=== PATIENT | female | born 1970 | race Hispanic/Latino ===

== ENCOUNTER 2017-06-22 05:18 | Emergency (ER) | payer OTHER, SELFPAY ==
[2017-06-22] MEDS ORDERED: SODIUM CHLORIDE 0.9% 1000ML 1,000 ML IV ONE (05:36)
[2017-06-22] MEDS ORDERED: ONDANSETRON HCL MDV 20ML 2 MG/ML VIAL ONE (05:36)
[2017-06-22] MEDS ORDERED: ASPIRIN 81MG TAB.CHEW ONE (05:47)
[2017-06-22 05:51] LABS: BASOPHILS % (AUTO) 0.4 % (0.0-5.0); EOSINOPHILS % (AUTO) 1.3 % (0.0-8.0); HEMATOCRIT 37.9 % (36-48); LYMPHOCYTES % (AUTO) 22.5 % (21.0-51.0); MEAN CORPUSCULAR HEMOGLOBIN 28.8 pg (27.0-33.0); MEAN CORPUSCULAR HGB CONC 33.2 g/dL (32.0-36.0); MEAN CORPUSCULAR VOLUME 86.7 fL (79-99); MONOCYTES % (AUTO) 4.4 % (3.0-13.0); NEUTROPHILS % (AUTO) 71.4 % (40.0-77.0); PLATELET COUNT (AUTO) 363 K/uL (130-400); RED BLOOD CELL COUNT(AUTO) 4.37 MIL/uL (4.00-5.50)
[2017-06-22 05:59] LABS: CARBON DIOXIDE 24 mmol/L (21-32); CHLORIDE 104 mmol/L (101-111); CREATININE 0.7 mg/dL (0.5-1.5); GLOMERULAR FILTR. RATE CALC 96 mL/min (>60); GLUCOSE,RANDOM 250 mg/dL (70-105); POTASSIUM 3.5 mmol/L (3.5-5.1); SODIUM SERUM 138 mmol/L (136-145); UREA NITROGEN, BLOOD 11 mg/dL (7-18)
[2017-06-22 06:19] LABS: CREATINE KINASE MB 0.5 ng/mL (0.5-3.6); CREATINE KINASE, TOTAL 50 U/L (21-232); MYOGLOBIN 21 ng/mL (10-92); TROPONIN I < 0.04 ng/mL (0.00-0.06)
[2017-06-22] MEDS ORDERED: TRAMADOL HCL 50 MG TABLET ONE (06:42)
[2017-06-22] MEDS ORDERED: SUCRALFATE 1 GM TABLET ONE (07:25)
[2017-06-22 07:35] LABS: ALANINE AMINOTRANSFERASE 25 U/L (12-78); ALBUMIN 3.2 g/dL (3.5-5.0); ASPARTATE AMINOTRANSFERASE 13 U/L (10-37); BILIRUBIN,TOTAL 0.2 mg/dL (0.2-1.0); LIPASE 153 U/L (114-286); TOTAL PROTEIN, SERUM 7.2 g/dL (6.0-8.3)
== END 2017-06-22 08:18 | disposition home or self-care (01) ==
LOC: EDH 05:18
DX: R11.2 Nausea with vomiting, unspecified (principal); R19.7 Diarrhea, unspecified; M25.512 Pain in left shoulder; R94.31 Abnormal electrocardiogram [ECG] [EKG]; E11.40 Type 2 diabetes mellitus with diabetic neuropathy, unspecified; Z98.890 Other specified postprocedural states
CPT/HCPCS: 36415; 80053; 82550; 82553; 83690; 83874; 84484 ×2; 85025; 93005 ×2; 96361; 96374; 99285; J7030

== ENCOUNTER 2022-08-30 20:29 | Emergency (ER) | payer OTHER, SELFPAY ==
[~2022-08-30] VITALS: Ht 152.4 cm; Wt 86.2 kg
[2022-08-30 20:35] VITALS: BP 159/83
[2022-08-30 21:07] LABS: APPEARANCE,URINE CLEAR (CLEAR); BILIRUBIN,URINE NEGATIVE (NEGATIVE); COLOR,URINE DARK-YELLOW (YELLOW); GLUCOSE, URINE (UA) NEGATIVE (NEGATIVE); KETONES,URINE NEGATIVE (NEGATIVE); LEUKOCYTE ESTERASE ,URINE NEGATIVE Leu/uL (NEGATIVE); NITRATE,URINE 1+ (NEGATIVE); OCCULT BLOOD,URINE NEGATIVE (NEGATIVE); PH,URINE 7.5 (5.0-8.0); PROTEIN,URINE NEGATIVE (NEGATIVE); UROBILINOGEN,URINE 0.2 mg/dL (0.2-1.0)
[2022-08-30 21:08] LABS: RBC,URINE 0-1 /HPF (0-1); WBC,URINE 0-1 /HPF (0-1)
[2022-08-30] MEDS ORDERED: SULF1TAB42 PO (21:29)
[2022-08-30] MEDS ORDERED: CEFTRIAXONE 1G VIAL IM ONE (21:30)
== END 2022-08-30 21:59 | disposition home or self-care (01) ==
LOC: EDH 20:29
DX: N39.0 Urinary tract infection, site not specified (principal); I10 Essential (primary) hypertension; E11.9 Type 2 diabetes mellitus without complications; E78.00 Pure hypercholesterolemia, unspecified
CPT/HCPCS: 99283; 87088; 81001; 96372; J0696

== ENCOUNTER 2022-09-10 02:26 | Observation (INO) | payer OTHER ==
[~2022-09-10] VITALS: Ht 152.4 cm; Wt 75.2 kg
[~2022-09-10 02:26] MED LIST: SULF1TAB42 PO
[2022-09-10 02:52] LABS: BASOPHILS % (AUTO) 0.4 % (0.0-5.0); EOSINOPHILS % (AUTO) 1.7 % (0.0-8.0); HEMATOCRIT 37.4 % (36-48); LYMPHOCYTES % (AUTO) 27.4 % (21.0-51.0); MEAN CORPUSCULAR HEMOGLOBIN 29.1 pg (27.0-33.0); MEAN CORPUSCULAR VOLUME 85.8 fL (79-99); MONOCYTES % (AUTO) 5.5 % (3.0-13.0); NEUTROPHILS % (AUTO) 64.4 % (40.0-77.0); PLATELET COUNT (AUTO) 402 K/uL (130-400); RED BLOOD CELL COUNT(AUTO) 4.36 MIL/uL (4.00-5.50); RED CELL DISTRIBUTION WIDTH 12.6 % (11.0-15.5); WHITE BLOOD COUNT (AUTO) 13.4 K/uL (4.8-10.8)
[2022-09-10 02:58] LABS: APPEARANCE,URINE CLEAR (CLEAR); BILIRUBIN,URINE NEGATIVE (NEGATIVE); COLOR,URINE DARK-YELLOW (YELLOW); GLUCOSE, URINE (UA) NEGATIVE (NEGATIVE); KETONES,URINE NEGATIVE (NEGATIVE); LEUKOCYTE ESTERASE ,URINE NEGATIVE Leu/uL (NEGATIVE); NITRATE,URINE NEGATIVE (NEGATIVE); OCCULT BLOOD,URINE NEGATIVE (NEGATIVE); PROTEIN,URINE NEGATIVE (NEGATIVE); UROBILINOGEN,URINE 0.2 mg/dL (0.2-1.0)
[2022-09-10] MEDS ORDERED: LIDOCAINE HCL 2% VISCOUS 15 ML UDCUP PO ONE (03:00)
[2022-09-10] MEDS ORDERED: LACTATED RINGERS 1000ML 1,000 ML IV ONE (03:00)
[2022-09-10] MEDS ORDERED: MORPHINE 2 MG SYG IVP ONE (03:00)
[2022-09-10] MEDS ORDERED: ONDANSETRON 4MG INJ IVP ONE (03:00)
[2022-09-10 03:07] LABS: ALBUMIN 3.6 g/dL (3.5-5.0); CREATININE 0.6 mg/dL (0.5-1.5); POTASSIUM 4.2 mmol/L (3.5-5.1); TOTAL PROTEIN, SERUM 7.2 g/dL (6.0-8.3)
[2022-09-10] MEDS ORDERED: ESOM20CA60 PO (04:12)
[2022-09-10] MEDS ORDERED: ESTR1TAB17 PO (04:12)
[2022-09-10] MEDS ORDERED: SITA100T12 PO (04:12)
[2022-09-10] MEDS ORDERED: ATOR10TA69 PO (04:12)
[2022-09-10] MEDS ORDERED: GABA-529 PO (04:12)
[2022-09-10] MEDS ORDERED: LISI20TA24 PO (04:12)
[2022-09-10] MEDS ORDERED: PROP20TA7 PO (04:13)
[2022-09-10] MEDS ORDERED: CEFTRIAXONE 1G VIAL 1 GM in 0.9%NACL 50ML 50 ML IV SCH (05:00)
[2022-09-10] MEDS ORDERED: ACETAMINOPHEN WITH CODEINE 1 TAB TAB PO PRN ×2 (05:00)
[2022-09-10] MEDS ORDERED: 0.9%NACL 1000ML 1,000 ML IV SCH (05:00)
[2022-09-10] MEDS ORDERED: MAG/ALUM/SIMETH 30 ML UDCUP PO PRN (05:00)
[2022-09-10] MEDS ORDERED: ONDANSETRON 4MG INJ IV PRN (05:00)
[2022-09-10] MEDS ORDERED: CEFTRIAXONE 1G VIAL ONE (05:27)
[2022-09-10 05:55] VITALS: BP 126/69
[2022-09-10] MEDS: INSULIN HUMULIN R 100 UNIT/ML 3ML SQ SCH ×2 (06:35→11:30)
[2022-09-10 08:00] VITALS: BP 107/60
[2022-09-10] MEDS ORDERED: ENOXAPARIN SODIUM 30 MG/0.3 ML SQ SCH (09:00)
[2022-09-10] MEDS ORDERED: FAMOTIDINE 20MG TAB PO SCH (09:00)
[2022-09-10 09:25] LABS: CRP QUANTITATIVE 4.6 mg/L (0.00-9.0)
[2022-09-10 09:30] LABS: HEMOGLOBIN A1C 6.8 % (4.0-6.0)
[2022-09-10] MEDS ORDERED: PANTOPRAZOLE 40 MG/VIAL IVP SCH (09:30)
[2022-09-10] MEDS ORDERED: CEFTRIAXONE 1G VIAL IVPB SCH (11:00)
[2022-09-10] MEDS ORDERED: LEVO-70 PO (11:14)
[2022-09-10] MEDS ORDERED: DICY-20 PO (11:14)
[2022-09-10] MEDS ORDERED: PANT40TA54 PO (11:14)
[2022-09-10 11:41] VITALS: BP 111/71
[2022-09-10 11:52] LABS: CREATININE 0.5 mg/dL (0.5-1.5); POTASSIUM 4.2 mmol/L (3.5-5.1)
== END 2022-09-10 14:55 | disposition home or self-care (01) ==
LOC: EDH 02:26 → EDHIP 02:27 → INTOOBSV 02:27 → 4DH 05:39
PROVIDERS: ADMIT Hospitalist; ATTEND Hospitalist
DX: A04.9 Bacterial intestinal infection, unspecified (principal); K52.89 Other specified noninfective gastroenteritis and colitis; D72.829 Elevated white blood cell count, unspecified; E87.8 Other disorders of electrolyte and fluid balance, not elsewhere classified; E87.1 Hypo-osmolality and hyponatremia; D75.839 Thrombocytosis, unspecified; I10 Essential (primary) hypertension; E66.9 Obesity, unspecified; E11.65 Type 2 diabetes mellitus with hyperglycemia; E78.00 Pure hypercholesterolemia, unspecified; N39.0 Urinary tract infection, site not specified; Z79.899 Other long term (current) drug therapy; Z98.890 Other specified postprocedural states; Z68.32 Body mass index [BMI] 32.0-32.9, adult; Z87.440 Personal history of urinary (tract) infections; Z90.710 Acquired absence of both cervix and uterus; Z98.891 History of uterine scar from previous surgery
CPT/HCPCS: 96372; 96361; 96365; 96375; 99285; 83036; 83615; 84484; 80053; 83690; 85025; 85651; 87040 ×2; 82948 ×2; 86140; 81003; 36415; 74176; 93005; 84145; G0378 ×10; J7120; J2270; J7030; J1650; J0696; J2405; C9113; 80048

== ENCOUNTER 2024-03-25 19:22 | Emergency (ER) | payer SELFPAY ==
[~2024-03-25] VITALS: Ht 152.4 cm; Wt 80.3 kg
[~2024-03-25 19:22] MED LIST changes: +ATOR10TA69 PO; +DICY10CA2 PO; +DICY20TA2 PO; +ESTR1TAB17 PO; +GABA-529 PO; +LEVO-70 PO; +LISI20TA24 PO; +ONDA-243 PO; +PANT40TA54 PO; +PROP20TA7 PO; +SITA100T12 PO; -SULF1TAB42 PO
--- NOTE | 2024-03-25 19:29 | NUR ---
UA CUP PROVIDED
[2024-03-25 19:43] LABS: BASOPHILS # (AUTO) 0.03 K/uL (0.00-0.20); BASOPHILS % (AUTO) 0.2 % (0.0-5.0); EOSINOPHILS % (AUTO) 2.2 % (0.0-8.0); HEMATOCRIT 38.3 % (36-48); IMMATURE GRANULOCYTE ABSOLUTE 0.06 K/uL (0-1); LYMPHOCYTES # (AUTO) 3.1 K/uL (1.0-4.8); LYMPHOCYTES % (AUTO) 23.3 % (21.0-51.0); MEAN CORPUSCULAR HEMOGLOBIN 29.9 pg (27.0-33.0); MEAN CORPUSCULAR HGB CONC 33.9 g/dL (32.0-36.0); MONOCYTES # (AUTO) 1.1 K/uL (0.1-1.0); MONOCYTES % (AUTO) 7.9 % (3.0-13.0); NEUTROPHILS # (AUTO) 8.8 K/uL (1.8-7.7); PLATELET COUNT (AUTO) 378 K/uL (130-400); RED BLOOD CELL COUNT(AUTO) 4.35 MIL/uL (4.00-5.50); RED CELL DISTRIBUTION WIDTH 12.6 % (11.0-15.5); WHITE BLOOD COUNT (AUTO) 13.4 K/uL (4.8-10.8)
--- NOTE | 2024-03-25 19:43 | ERN ---
ED Note History of Present Illness Stated Complaint: HEADACHE, ABD PAIN Chief Complaint: Multiple Complaints Time Seen by MD: 19:32 Dictation: PATIENT IS A 53-YEAR-OLD FEMALE COMING IN TODAY WITH COMPLAINTS OF AN ONSET OF A FRONTAL HEADACHE AND BURNING IN HER STOMACH ONSET THIS MORNING. SHE STATES SHE HAD CHECKED HER BLOOD SUGAR IT [id number] AND TOOK HER MEDICATIONS. SHE ALSO STATES SHE TOOK AN IBUPROFEN THIS MORNING AND THE HEADACHE ALMOST WENT AWAY AND THEN CAME BACK THIS AFTERNOON. SHE STATES CURRENTLY SHE IS JUST HAVING BURNING IN HER STOMACH MORE EPIGASTRIC, NO SOB NO BACK PAIN NO JAW PAIN NO ARM PAIN. STATES SHE HAD BEEN ONLY TAKING METFORMIN A 1000 MG AT NIGHT AND HAD HAD A TELE HEALTH CALL WITH HER DOCTOR YESTERDAY WHO CHANGED HIS TO 500 MG 3 TIMES A DAY WITH FOOD. Allergies: Coded Allergies: No Known Drug Allergies (Unverified Allergy, Unknown, 09/10/22) Home Meds Active Scripts Dicyclomine HCl (Bentyl) 20 Mg Tab, 10 MG PO BID for 5 Days, #10 TAB Prov:JANAY BAINS MD 09/03/23 Ondansetron (Ondansetron Odt) 4 Mg Tab.rapdis, 4 MG PO BID for 5 Days, #10 TAB Prov:JANAY BAINS MD 09/03/23 Levofloxacin (Levofloxacin) 500 Mg Tablet, 500 MG PO DAILY, #5 TAB 0 Refills Prov:PAKO CURRAN 09/10/22 Dicyclomine HCl (Dicyclomine HCl) 10 Mg Capsule, 10 MG PO TIDP PRN for ABDOMINAL PAIN, #21 CAP 0 Refills Prov:PAKO CURRAN 09/10/22 Pantoprazole Sodium (Pantoprazole Sodium) 40 Mg Tablet.dr, 40 MG PO DAILY, #30 TAB 0 Refills Prov:PAKO CURRAN 09/10/22 Reported Medications Propranolol HCl (Propranolol HCl) 20 Mg Tablet, 20 MG PO BID, TAB 09/10/22 Gabapentin (Gabapentin) 100 Mg Capsule, 100 MG PO HS, CAP 09/10/22 Sitagliptin Phosphate (Januvia) 100 Mg Tablet, 100 MG PO DAILY, TAB 09/10/22 Estradiol (Estradiol) 1 Mg Tablet, 1 MG PO DAILY, TAB 09/10/22 Atorvastatin Calcium (Atorvastatin Calcium) 10 Mg Tablet, 10 MG PO HS, TAB 09/10/22 Lisinopril (Lisinopril) 20 Mg Tablet, 20 MG PO DAILY, TAB 09/10/22 Past Medical History Past Medical History: Diabetes-Type II, GERD, High Cholesterol, Hypertension Surgical History: Hysterectomy, Social History: Negative History: Not Applicable RN Note Reviewed/Agreed w/PFSH: Yes Review of System Dictation CONSTITUTIONAL: NEGATIVE EXCEPT FOR HPI HEAD/FACE: NEGATIVE EXCEPT FOR HPI EENT: NEGATIVE EXCEPT FOR HPI RESPIRATORY: NEGATIVE EXCEPT FOR HPI GASTROINTESTINAL/ABDOMINAL: NEGATIVE EXCEPT FOR HPI BURNING GENITOURINARY: NEGATIVE EXCEPT FOR HPI MUSCULOSKELETAL: NEGATIVE EXCEPT FOR HPI INTEGUMENTARY: NEGATIVE EXCEPT FOR HPI NEUROLOGICAL/PSYCH: NEGATIVE EXCEPT FOR HPI FRONTAL HEADACHE HEMATOLOGIC/LYMPHATIC: NEGATIVE EXCEPT FOR HPI ALL SYSTEMS NEGATIVE, EXCEPT NOTED ABOVE. 13 POINT REVIEW OF SYSTEMS ASSESSED AND ALL NEGATIVE EXCEPT FOR ABOVE. Initial Vital Sign VS Vital Signs Date Time Temp Pulse Resp B/P (MAP) Pulse Ox O2 Delivery O2 Flow Rate FiO2 03/25/24 19:23 97.5 77 18 175/104 97 Room Air 03/25/24 19:37 0 21 Physical Exam Dictation VITAL SIGNS REVIEWED GENERAL APPEARANCE: ALERT, ORIENTED X 3, MILD ACUTE DISTRESS, WELL DEVELOPED, NOURISHED. HEAD AND FACE: NON-TRAUMATIC. EYES: PERRL, PINK CONJUNCTIVAS, EYELID NO TRAUMA, ANTERIOR CHAMBER WITH ARCUS SENILIS. EARS: PINNAS INTACT AND NO SIGNS OF TRAUMA OR ERYTHEMA EAR CANALS CLEAR AND NO DISCHARGE TM NO ERYTHEMA NOSE: NO DISCHARGE, NO BLEEDING. OROPHARYNX: MOUTH NORMAL, TONGUE PINK, PHARYNX CLEAR,NO ERYTHEMA, TONSILS NO EXUDATES, NO ABSCESSES NOTED, MUCOUS MEMBRANE MOIST NECK: SUPPLE, NON-TENDER, NO THYROMEGALY, NO MASSES, NO JVD, NO BRUITS BREAST:DEFERRED CHEST:NO TENDERNESS, NO CREPITUS, NO PARADOXICAL MOVEMENT, NO RETRACTIONS LUNGS:CLEAR, WELL-VENTILATED, SYMMETRIC, NO RALES, NO WHEEZING, NO RHONCHI, NO STRIDOR, GOOD BREATH SOUNDS BILATERALLY HEART: REGULAR RATE, REGULAR RHYTHM, NO MURMUR, NO GALLOPS VASCULAR: NO PERIPHERAL EDEMA, MILD EPIGASTRIC TENDERNESS WITH PALPATION, NO REBOUND, NO MASSES NO HEPATOMEGALY, NO SPLENOMEGALY, NO SALDANA'S SIGN, NO HERNIAS. RECTAL: DEFERRED GENITAL: DEFERRED NEUROLOGICAL: NORMAL SPEECH, MOTOR FUNCTION INTACT, SENSORY FUNCTION INTACT NIH IS 0 MUSCULOSKELETAL: NECK NONTENDER, FULL RANGE OF MOTION, BACK NONTENDER, FULL RANGE OF MOTION, EXTREMITIES: NONTENDER, FULL RANGE OF MOTION SKIN: COLOR PINK, DRY, NO TURGOR, NO RASH, NO LACERATIONS, NO ABRASIONS, NO CONTUSIONS. LYMPHATIC: DEFERRED Results (Laboratory/Radiology) Laboratory/Radiology Laboratory Tests Test 03/25/24 19:35 03/25/24 19:44 White Blood Count 13.4 K/uL (4.8-10.8) H Red Blood Count 4.35 MIL/uL (4.00-5.50) Hemoglobin 13.0 g/dL (12.0-16.0) Hematocrit 38.3 % (36-48) Mean Corpuscular Volume 88.0 fL (79-99) Mean Corpuscular Hemoglobin 29.9 pg (27.0-33.0) Mean Corpuscular Hemoglobin Concent 33.9 g/dL (32.0-36.0) Red Cell Distribution Width 12.6 % (11.0-15.5) Platelet Count 378 K/uL (130-400) Mean Platelet Volume 9.9 fL (7.5-10.5) Immature Granulocyte % (Auto) 0.4 % (0-1) Neutrophils (%) (Auto) 66.0 % (40.0-77.0) Lymphocytes (%) (Auto) 23.3 % (21.0-51.0) Monocytes (%) (Auto) 7.9 % (3.0-13.0) Eosinophils (%) (Auto) 2.2 % (0.0-8.0) Basophils (%) (Auto) 0.2 % (0.0-5.0) Neutrophils # (Auto) 8.8 K/uL (1.8-7.7) H Lymphocytes # (Auto) 3.1 K/uL (1.0-4.8) Monocytes # (Auto) 1.1 K/uL (0.1-1.0) H Eosinophils # (Auto) 0.30 K/uL (0.00-0.70) Basophils # (Auto) 0.03 K/uL (0.00-0.20) Absolute Immature Granulocyte (auto 0.06 K/uL (0-1) Nucleated Red Blood Cells 0.0 % (0.0-0.19) Sodium Level 140 mmol/L (136-145) Potassium Level 4.4 mmol/L (3.5-5.1) Chloride Level 102 mmol/L (101-111) Carbon Dioxide Level 33 mmol/L (21-32) H Blood Urea Nitrogen 11 mg/dL (7-18) Creatinine 0.7 mg/dL (0.5-1.0) Glomerular Filtration Rate Calc 103 mL/min (>90) Random Glucose 177 mg/dL (70-105) H Total Calcium 9.3 mg/dL (8.5-10.1) Magnesium Level 1.50 mg/dL (1.80-2.40) L Total Bilirubin 0.3 mg/dL (0.2-1.0) Direct Bilirubin 0.1 mg/dL (0.0-0.3) Aspartate Amino Transf (AST/SGOT) 15 U/L (10-37) Alanine Aminotransferase (ALT/SGPT) 27 U/L (12-78) Alkaline Phosphatase 115 U/L (50-136) Troponin I High Sensitivity 5 ng/L (4-50) Total Protein 7.5 g/dL (6.0-8.3) Albumin 3.4 g/dL (3.5-5.0) L Lipase 113 U/L (16-77) H Urine Color COLORLESS (YELLOW) Urine Appearance CLEAR (CLEAR) Urine pH 7.5 (5.0-8.0) Urine Specific [place] 1.004 (1.001-1.031) Urine Protein NEGATIVE mg/dL (NEGATIVE) Urine Glucose (UA) NEGATIVE mg/dL (NEGATIVE) Urine Ketones NEGATIVE mg/dL (NEGATIVE) Urine Occult Blood NEGATIVE (NEGATIVE) Urine Nitrate NEGATIVE (NEGATIVE) Urine Bilirubin NEGATIVE mg/dL (NEGATIVE) Urine Urobilinogen 0.2 mg/dL (0.2-1.0) Urine Leukocyte Esterase NEGATIVE Kady/uL EX: F AGE: 53 LOCATION: ED ORDER 23 STATUS: REG ER REPORT#: [id number] SERVICE 22 REASON: EPIGASTRIC AND LEFT UPPER QUADRANT PAIN TENDERNESS ELEVATED LIPASE ORDERING PHYSICIAN: MIKI PALM NP PROCEDURE: ABD PEL W - CT ABDOMEN/PELVIS W/CONTRAST CT ABDOMEN/PELVIS W/CONTRAST CLINICAL HISTORY: EPIGASTRIC AND LEFT UPPER QUADRANT PAIN TENDERNESS ELEVATED LIPASE COMPARISON: 09/03/2023 TECHNIQUE: Sequential axial images of abdomen and pelvis with 75 mL of Omnipaque 350 IV contrast with sagittal and coronal reconstructions. CT was performed with one or more of the following dose reduction techniques: automated exposure control, adjustment of the mA and/or kV according to patient size, or use of iterative reconstruction technique. FINDINGS: The lung bases are clear. Liver and spleen are unremarkable. The gallbladder pancreas and adrenal glands and kidneys and bladder are unremarkable. There is no identified bowel obstruction. The appendix is unremarkable. There is no identified free air or free fluid. There is no bulky abdominal or retroperitoneal lymphadenopathy. The uterus is surgically absent. There is mild diffuse degenerative changes of the spine. The uterus is surgically absent. IMPRESSION: Change of prior hysterectomy. There are no acute findings. The pancreas is unremarkable. DICTA Labs Reviewed?: Yes EKG Comment: SINUS RHYTHM/HEART RATE 77/T-WAVE FLATTENING LEADS V4 AND V5 ED Course ED Course Orders Procedure Category Date Status Time Cbc With Differential LAB 03/25/24 Complete 19:29 Basic Metabolic Panel LAB 03/25/24 Complete 19:29 Magnesium LAB 03/25/24 Complete 19:29 Troponin I High LAB 03/25/24 Complete Sensitivity 19:29 Hepatic Function Panel LAB 03/25/24 Complete 19:29 Lipase LAB 03/25/24 Complete 19:29 12 Lead Ekg Tracing- EKG 03/25/24 Logged Technical 19:29 Urinalysis Profile LAB 03/25/24 Complete 19:29 Famotidine 20mg Vial PHA 03/25/24 Complete (Pepcid 20mg Vial) 20:00 0.9%Nacl 1000ml (Ns PHA 03/25/24 Complete 1000ml) 20:00 Ct Abdomen/Pelvis CT 03/25/24 Resulted W/Contrast 20:23 Iohexol (Omnipaque) PHA 03/25/24 Complete 21:19 Current Medications Medications (Trade) Dose Ordered Sig/Sis Route PRN Reason Start Time Stop Time Status Last Admin Dose Admin Famotidine (Pepcid 20mg Vial) 20 mg ONCE ONCE IV 03/25/24 20:00 03/25/24 20:01 DC 03/25/24 20:18 Iohexol (Omnipaque) 75 ml STK-MED ONCE IV 03/25/24 21:19 03/25/24 21:20 DC Sodium Chloride 1,000 ml @ 0 mls/hr ONCE ONCE IV 03/25/24 20:00 03/25/24 20:01 DC 03/25/24 20:18 Vital Signs Date Time Temp Pulse Resp B/P (MAP) Pulse Ox O2 Delivery O2 Flow Rate FiO2 03/25/24 20:42 98.8 80 15 132/77 99 Room Air* 0 21 03/25/24 19:37 98.8 78 15 133/77 99 Room Air* 0 21 03/25/24 19:23 97.5 77 18 175/104 97 Room Air 2155/PATIENT REMAINS HEMODYNAMICALLY STABLE NO PAIN AT THIS TIME WE WILL DISCHARGE HER HOME WITH ELEVATED LIPASE, UNCONTROLLED DIABETES AND GASTRITIS. ADDITIONALLY SHE WILL BE GIVEN MAGNESIUM TO REPLACE 1.5 AND HAVE HER FOLLOW UP WITH HER DOCTOR. HEART Score Response (Comments) Value EKG: Repolarization changes 1 Age: 45-65yrs (+1) 1 Risk Factors: 1-2 risk factors (+1) 1 Initial Troponin: Normal limit (0) 0 Total 3 Medical Decision Making MDM MDM: DIFFERENTIAL DIAGNOSIS: ACS/AMI/UTI/PANCREATITIS/DIVERTICULITIS/GASTRITIS RATIONALE: TESTS CONSIDERED AND ORDERED SECONDARY TO SHARED DECISION MAKING INCLUDE: EKG/LABS/RADIOLOGY PREVIOUS OUTSIDE RECORDS REVIEWED: OLD ER VISITS. RISK OF COMPLICATION AND/OR MORBIDITY OR MORTALITY OF PATIENT MANAGEMENT: NONE MEDICATIONS-PER MEDICATION RECONCILIATION NEED FOR HOSPITALIZATION: PATIENT DOES NOT MEET CRITERIA FOR HOSPITALIZATION. REVIEWED THERE ARE NO SOCIAL CONCERNS WITH THIS PATIENT. PRESCRIPTION DRUG MANAGEMENT OMEPRAZOLE/MAGNESIUM PRESCRIPTIONS WILL INCLUDE SYMPTOMATIC CARE PATIENT'S PRIOR EXTERNAL MEDICAL RECORDS FROM OTHER ER VISITS WERE REVIEWED BY ME INDICATED. PRIOR TESTING AND RESULTS FROM PREVIOUS VISITS WERE REVIEWED. PRIOR TESTS WERE TAKEN INTO ACCOUNT WITH MEDICAL DECISION MAKING AND RESOURCE UTILIZATION, INDEPENDENT HISTORIAN/HISTORIANS WERE USED TO OBTAIN COMPLETE MEDICAL HISTORY. I INDEPENDENTLY INTERPRETED THE TEST THAT WERE PERFORMED, RESULTS WERE REVIEWED BY ME AND CONSIDERED FINDINGS ON RADIOLOGY IF ORDERED. MEDICAL MANAGEMENT AND EXAMINATION INTERPRETATION DISCUSSIONS WERE HAD BY ME WITH OTHER QUALIFIED HEALTHCARE PROFESSIONALS INDICATED FOR THE PATIENT'S CARE. DX & DISP Disposition: Discharge Departure Impression: Primary Impression: Acute gastritis Additional Impressions: Uncontrolled diabetes mellitus, Hypomagnesemia, Elevated lipase Condition: Stable Scripts Omeprazole (Omeprazole) 40 Mg Capsule.dr 1 CAP PO DAILY for 30 Days, #30 CAP 0 Refills Prov: MIKI PALM NP 03/25/24 Sucralfate (Carafate) 1 Gram Tablet 1 GM PO ACHS for 10 Days, #40 TAB Prov: MIKI PALM NP 03/25/24 Magnesium Oxide/Mag Aa Chelate (Magnesium 300 mg Capsule) 300 Mg Capsule 300 MG PO DAILY for 10 Days, #10 CAP 0 Refills Prov: MIKI PALM NP 03/25/24 Additional Instructions: FOLLOW-UP WITH PRIMARY CARE PROVIDER IN 1 TO 2 DAYS. TAKE MEDICATIONS DIRECTED HERE IN THE EMERGENCY ROOM. OKAY TO CONTINUE HOME MEDICATIONS UNLESS OTHERWISE DISCUSSED DURING YOUR VISIT IN THE EMERGENCY ROOM TODAY. RETURN TO YOUR NEAREST EMERGENCY ROOM IF SYMPTOMS WORSEN OR IF THERE IS NO IMPROVEMENT. CALL 911 IF YOU NEED IMMEDIATE ASSISTANCE. TAKE TYLENOL OR MOTRIN [id number] NEEDED AND IF NO CONTRAINDICATIONS ARE PRESENT. INCREASE ORAL HYDRATION. A WOUND CULTURE OR URINE CULTURE WAS ORDERED HERE IN THE EM ERGENCY ROOM DEPARTMENT PLEASE FOLLOW-UP WITH PRIMARY CARE PROVIDER AND ADVISE THEM TO GET REPEAT PORTS FROM OUR FACILITY. IF YOU HAD ANY YONATAN WRAP/SPLINTS THAT WERE APPLIED HERE, PLEASE DO NOT REMOVE THEM UNTIL YOU SEE YOUR PRIMARY CARE OR SPECIALTY. FOLLOW A BLAND DIET WITH WATER FOR FLUIDS ONLY. NO SPICY FOODS NO COFFEE, NO ICE TEA NO SODA POP AND NO ALCOHOL UNTIL CLEARED BY YOUR DOCTOR NEXT WEEK. TAKE MAGNESIUM REPLACEMENT DIRECTED. TAKE CARAFATE DIRECTED. Referrals: JESSE PAYNE MD (PCP) Time of Disposition: 21:57 I have reviewed the case, and I agree with, Diagnosis and Plan MIKI PALM NP Mar 25, 2024 19:43
[2024-03-25 19:55] LABS: CREATININE 0.7 mg/dL (0.5-1.0); POTASSIUM 4.4 mmol/L (3.5-5.1)
[2024-03-25 19:59] LABS: ALBUMIN 3.4 g/dL (3.5-5.0); BILIRUBIN,DIRECT 0.1 mg/dL (0.0-0.3); BILIRUBIN,TOTAL 0.3 mg/dL (0.2-1.0); MAGNESIUM 1.5 mg/dL (1.80-2.40); TOTAL PROTEIN, SERUM 7.5 g/dL (6.0-8.3)
[2024-03-25 20:14] LABS: APPEARANCE,URINE CLEAR (CLEAR); BILIRUBIN,URINE NEGATIVE (NEGATIVE); COLOR,URINE COLORLESS (YELLOW); GLUCOSE, URINE (UA) NEGATIVE (NEGATIVE); KETONES,URINE NEGATIVE (NEGATIVE); LEUKOCYTE ESTERASE ,URINE NEGATIVE Leu/uL (NEGATIVE); NITRATE,URINE NEGATIVE (NEGATIVE); OCCULT BLOOD,URINE NEGATIVE (NEGATIVE); PH,URINE 7.5 (5.0-8.0); PROTEIN,URINE NEGATIVE (NEGATIVE); UROBILINOGEN,URINE 0.2 mg/dL (0.2-1.0)
[2024-03-25 20:15] LABS: ADD UA MICROSCOPIC NO
[2024-03-25] MEDS: 0.9%NACL 1000ML 1,000 ML IV ONE (20:18)
[2024-03-25] MEDS: FAMOTIDINE 20MG VIAL IV ONE (20:18)
[2024-03-25] MEDS ORDERED: IOHEXOL-350 75 ML VIAL IV ONE (21:19)
--- NOTE | 2024-03-25 21:50 | HMCIMG ---
CT ABDOMEN/PELVIS W/CONTRAST CLINICAL HISTORY: EPIGASTRIC AND LEFT UPPER QUADRANT PAIN TENDERNESS ELEVATED LIPASE COMPARISON: 09/03/2023 TECHNIQUE: Sequential axial images of abdomen and pelvis with 75 mL of Omnipaque 350 IV contrast with sagittal and coronal reconstructions. CT was performed with one or more of the following dose reduction techniques: automated exposure control, adjustment of the mA and/or kV according to patient size, or use of iterative reconstruction technique. FINDINGS: The lung bases are clear. Liver and spleen are unremarkable. The gallbladder pancreas and adrenal glands and kidneys and bladder are unremarkable. There is no identified bowel obstruction. The appendix is unremarkable. There is no identified free air or free fluid. There is no bulky abdominal or retroperitoneal lymphadenopathy. The uterus is surgically absent. There is mild diffuse degenerative changes of the spine. The uterus is surgically absent. IMPRESSION: Change of prior hysterectomy. There are no acute findings. The pancreas is unremarkable.
[2024-03-25] MEDS ORDERED: MAGN300C PO (21:58)
[2024-03-25] MEDS ORDERED: OMEP40CA21 PO (21:58)
[2024-03-25] MEDS ORDERED: SUCR1TAB28 PO (21:58)
[2024-03-25 22:05] VITALS: BP 130/74; PULSE 78; RESP 15; TEMP 98.4; O2SAT 99
--- NOTE | 2024-03-26 04:18 | EKG ---
[facility] Test Date: 2024-03-25 Test Time: 19:44:41 Pat Name: ELSA BILLINGSLEY Department: [facility] Room: Gender: F Director Of Career Services: [id number] : 1970 Requested By: CHRISTINA FINNEY Order Number: [id number] Reading MD: Frederic Rolle Measurements Intervals [place] Rate: 77 P: 29 SC: 141 QRS: -13 QRSD: 90 T: -1 QT: 401 QTc: 454 Interpretive Statements Sinus rhythm Borderline T abnormalities, diffuse leads Compared to ECG 09/03/2023 17:58:58 T-wave abnormality now present Electronically Signed On 03-26-2024 08:01:00 DEPARTMENTAL SHIPPING CLERK by Frederic Rolle Please click the below link to view image of tracing.
== END 2024-03-25 22:08 | disposition home or self-care (01) ==
LOC: EDH 19:22
DX: K29.00 Acute gastritis without bleeding (principal); E11.65 Type 2 diabetes mellitus with hyperglycemia; E83.42 Hypomagnesemia; R74.8 Abnormal levels of other serum enzymes; E78.00 Pure hypercholesterolemia, unspecified; I10 Essential (primary) hypertension; K21.9 Gastro-esophageal reflux disease without esophagitis; Z79.84 Long term (current) use of oral hypoglycemic drugs; Z79.899 Other long term (current) drug therapy; Z90.710 Acquired absence of both cervix and uterus
CPT/HCPCS: 99285; 74177; 96374; 80076; 83735; 84484; 80048; 83690; 85025; 81003; 36415; 93005; J3490; Q9967

== ENCOUNTER 2024-11-07 23:38 | Emergency (ER) | payer BC ==
[~2024-11-07] VITALS: Ht 152.4 cm; Wt 82.1 kg
[~2024-11-07 23:38] MED LIST changes: +DICY-20 PO; -DICY10CA2 PO; +MAGN300C PO; +OMEP40CA21 PO; +SUCR1TAB28 PO
[2024-11-08 00:22] LABS: APPEARANCE,URINE TURBID (CLEAR); GLUCOSE, URINE (UA) 70 mg/dL (NEGATIVE); LEUKOCYTE ESTERASE ,URINE 500 Leu/uL (NEGATIVE); NITRATE,URINE 1+ (NEGATIVE); NON-SQUAMOUS EPITHELIAL CELL 2 /HPF (0-2); OCCULT BLOOD,URINE LARGE (NEGATIVE); SQUAMOUS EPITHELIAL CELL,UR FEW /HPF (0-2); WBC CLUMP MANY /HPF (0-1)
[2024-11-08] MEDS ORDERED: PHEN-846 PO (00:48)
[2024-11-08] MEDS ORDERED: CEPH500B PO (00:48)
--- NOTE | 2024-11-08 00:48 | ERN ---
General Chief Complaint: Painful Urination Stated Complaint: C/O LOWER BACK PAIN W/PAIN/BURNING WHEN VOIDING Time Seen by MD: 23:42 Source: patient History of Present Illness Initial Comments Patient is a 54-year-old female coming in complaining of dysuria. Per patient this has been ongoing for a couple of days. She states that when she urinates she feels discomfort. No fever no chills no nausea no vomiting. Allergies: Coded Allergies: No Known Drug Allergies (Unverified Allergy, Unknown, 09/10/22) Home Meds Active Scripts Omeprazole (Omeprazole) 40 Mg Capsule.dr, 1 CAP PO DAILY for 30 Days, #30 CAP 0 Refills Prov:MIKI PALM NP 03/25/24 Sucralfate (Carafate) 1 Gram Tablet, 1 GM PO ACHS for 10 Days, #40 TAB Prov:MIKI PALM NP 03/25/24 Magnesium Oxide/Mag Aa Chelate (Magnesium 300 mg Capsule) 300 Mg Capsule, 300 MG PO DAILY for 10 Days, #10 CAP 0 Refills Prov:MIKI PALM NP 03/25/24 Dicyclomine HCl (Bentyl) 20 Mg Tab, 10 MG PO BID for 5 Days, #10 TAB Prov:JANAY BAINS MD 09/03/23 Ondansetron (Ondansetron Odt) 4 Mg Tab.rapdis, 4 MG PO BID for 5 Days, #10 TAB Prov:JANAY BAINS MD 09/03/23 Levofloxacin (Levofloxacin) 500 Mg Tablet, 500 MG PO DAILY, #5 TAB 0 Refills Prov:PAKO CURRAN 09/10/22 Dicyclomine HCl (Dicyclomine HCl) 10 Mg Capsule, 10 MG PO TIDP PRN for ABDOMINAL PAIN, #21 CAP 0 Refills Prov:PAKO CURRAN 09/10/22 Pantoprazole Sodium (Pantoprazole Sodium) 40 Mg Tablet.dr, 40 MG PO DAILY, #30 TAB 0 Refills Prov:PAKO CURRAN 09/10/22 Reported Medications Propranolol HCl (Propranolol HCl) 20 Mg Tablet, 20 MG PO BID, TAB 09/10/22 Gabapentin (Gabapentin) 100 Mg Capsule, 100 MG PO HS, CAP 09/10/22 Sitagliptin Phosphate (Januvia) 100 Mg Tablet, 100 MG PO DAILY, TAB 09/10/22 Estradiol (Estradiol) 1 Mg Tablet, 1 MG PO DAILY, TAB 09/10/22 Atorvastatin Calcium (Atorvastatin Calcium) 10 Mg Tablet, 10 MG PO HS, TAB 09/10/22 Lisinopril (Lisinopril) 20 Mg Tablet, 20 MG PO DAILY, TAB 09/10/22 Past Medical History Past Medical History: Diabetes-Type II, High Cholesterol, Hypertension Past Surgical History: Hysterectomy, Social History Social History: Negative Female( History) History: Not Applicable ROS Dictation CONSTITUTIONAL: No chills, no fever, no weakness, no diaphoresis, no malaise. HEAD/FACE: No signs of trauma. EENT: No eye pain, no blurred vision, no tearing, no double vision, no ear pain, no ear discharge, no nose pain, no nasal congestion, no throat pain, no throat swelling, no mouth pain. RESPIRATORY: No cough, no orthopnea, no SOB, no stridor, no wheezing. CARDIOVASCULAR: No chest pain, no edema, no palpitations, no syncope. GASTROINTESTINAL/ABDOMINAL: No abdominal pain, no constipation, no diarrhea, no nausea, no vomiting. GENITOURINARY: No abnormal discharge, dysuria, no frequent urination, no marlon turia. No complaints of pain in the genitals. MUSCULOSKELETAL: No back pain, no gout, no joint pain, no joint swelling, no muscle pain, no muscle stiffness, no neck pain. INTEGUMENTARY: No change in color, no change in hair/nails, no dryness, no lesion, no lumps, no rash. NEUROLOGICAL/PSYCH: No anxiety, not depressed, no emotional problem, no headache, no numbness, no pre-existing deficit, no history of seizures, no tremors, no weakness. HEMATOLOGIC/LYMPHATIC: Not anemic, no history of blood clots, no apparent bleeding, no bruising, glands not swollen. All Systems Negative, Except as Noted. Physical Exam Physical Exam Dictation VITAL SIGNS: Reviewed. GENERAL APPEARANCE: Alert, oriented x3, no acute distress, obese. HEAD AND FACE: Non-traumatic. EYES: PERRL, pink conjunctivas, eyelid no trauma, anterior chamber clear. EARS: Pinnas intact and no signs of trauma or erythema. Ear canals clear and no discharge. TMs no erythema. NOSE: No discharge, no bleeding. OROPHARYNX: Mouth normal, teeth no caries, tongue pink. Pharynx clear, no erythema. Tonsils no exudates, no abscesses noted. Mucous membrane moist. NECK: Supple, non-tender, no thyromegaly, no masses, no JVD, no bruits. BREAST: Deferred. CHEST: No tenderness, no crepitus, no paradoxical movement, no retractions. LUNGS: Clear, well-ventilated, symmetric, no rales, no wheezing, no rhonchi, no stridor, good breath sounds bilaterally. HEART: Regular rate, regular rhythm, no murmur, no gallops. VASCULAR: No peripheral edema. ABDOMEN: Soft, positive bowel sounds, nondistended, no guarding, lower abdomen t zachary, no rebound, no masses no hepatomegaly, no splenomegaly, no Langford's sign, no hernias. RECTAL: Deferred. GENITAL: Deferred. NEUROLOGICAL: Normal speech, gross motor function intact, gross sensory function intact. MUSCULOSKELETAL: Neck nontender, full range of motion, back nontender, full range of motion. EXTREMITIES: Nontender, full range of motion. SKIN: Color pink, dry, no turgor, no rash, no lacerations, no abrasions, no contusions. LYMPHATICS: Deferred. Results Laboratory and Microbiology Lab and Micro Result Laboratory Tests Test 11/07/24 00:00 Urine Color DARK-ORANGE (YELLOW) Urine Appearance TURBID (CLEAR) Urine pH 6.0 (5.0-8.0) Urine Specific [place] 1.008 (1.001-1.031) Urine Protein 70 mg/dL (NEGATIVE) H Urine Glucose (UA) 70 mg/dL (NEGATIVE) H Urine Ketones NEGATIVE mg/dL (NEGATIVE) Urine Occult Blood LARGE (NEGATIVE) H Urine Nitrate 1+ (NEGATIVE) H Urine Bilirubin NEGATIVE mg/dL (NEGATIVE) Urine Urobilinogen 0.2 mg/dL (0.2-1.0) Urine Leukocyte Esterase 500 Kady/uL (NEGATIVE) H Urine RBC TNTC /HPF (0-1) H Urine WBC TNTC /HPF (0-1) H Urine WBC Clumps (Auto) MANY /HPF (0-1) Urine Squamous Epithelial Cells FEW /HPF (0-2) Urine Non-Squamous Epithelial Cells 2 /HPF (0-2) Urine Bacteria None /HPF (None Seen) Labs Reviewed?: Yes MDM MDM: Differential diagnosis: UTI, dysuria, Rationale: Tests considered and ordered secondary to shared decision making include: Previous outside records reviewed: Old ER visits. Risk of complication and/or morbidity or mortality of patient management: None Medications-Per medication reconciliation Need for hospitalization: Patient does not meet criteria for hospitalization. Need for emergency major/minor surgery: No Patient is a 54-year-old female coming in complaining of dysuria laboratory workup positive for urinary tract infection. Patient received IM Rocephin we will be discharged in stable condition with ongoing treatment. ED Course Orders Procedure Category Date Status Time Urinalysis LAB 11/07/24 Complete W/Microscopic 23:51 Culture Urine RAMIN 11/08/24 In Process 00:23 Ceftriaxone 1g Vial PHA 11/08/24 Logged (Rocephine 1g Inj) 01:00 Phenazopyridine Hcl PHA 11/08/24 Verified 200 Mg Tab (Pyridium 01:00 Current Medications Medications (Trade) Dose Ordered Sig/Sis Route PRN Reason Start Time Stop Time Status Last Admin Dose Admin Ceftriaxone Sodium (ROCEphine 1G INJ) 1 gm ONCE ONCE IM 11/08/24 01:00 11/08/24 01:01 UNV Vital Signs Date Time Temp Pulse Resp B/P (MAP) Pulse Ox O2 Delivery O2 Flow Rate FiO2 11/08/24 00:10 97.9 90 18 151/80 98 Room Air* 0 21 11/07/24 23:40 97.9 93 20 149/84 99 Room Air DX & DISP Disposition: Discharge Departure Impression: Primary Impression: UTI (urinary tract infection) Condition: Stable Scripts Phenazopyridine HCl (Pyridium) 100 Mg Tab 1 TAB PO TID for urinary discomfort for 2 Days, #6 TAB 0 Refills Prov: OMERO NICOLAS MD 11/08/24 Cephalexin Monohydrate (Keflex) 500 Mg Cap 1 CAP PO BID for 10 Days, #20 CAP 0 Refills Prov: OMERO NICOLAS MD 11/08/24 Additional Instructions: FOLLOW-UP WITH PRIMARY CARE PROVIDER IN 1 TO 2 DAYS. TAKE MEDICATIONS DIRECTED HERE IN THE EMERGENCY ROOM. OKAY TO CONTINUE HOME MEDICATIONS UNLESS OTHERWISE DISCUSSED DURING YOUR VISIT IN THE EMERGENCY ROOM TODAY. RETURN TO YOUR NEAREST EMERGENCY ROOM IF SYMPTOMS WORSEN OR IF THERE IS NO IMPROVEMENT. CALL 911 IF YOU NEED IMMEDIATE ASSISTANCE. TAKE TYLENOL [id number] NEEDED AND IF NO CONTRAINDICATIONS ARE PRESENT. INCREASE ORAL HYDRATION. A WOUND CULTURE OR URINE CULTURE WAS ORDERED HERE IN THE EMERGENCY ROOM DEPARTMENT PLEASE FOLLOW-UP WITH PRIMARY CARE PROVIDER AND ADVISE THEM TO GET REPORTS FROM OUR FACILITY. IF YOU HAD ANY YONATAN WRAP/SPLINTS THAT WERE APPLIED HERE, PLEASE DO NOT REMOVE THEM UNTIL YOU SEE YOUR PRIMARY CARE OR SPECIALTY. Referrals: Referrals: JESSE PAYNE MD (PCP) Time of Disposition: 00:47 OEMRO NICOLAS MD Nov 08, 2024 00:48
[2024-11-08] MEDS: PHENAZOpyridine HCL 200 MG TAB 200 MG TABLET PO ONE (01:19)
[2024-11-08 01:31] VITALS: BP 149/88; PULSE 89; RESP 15; TEMP 98.1; O2SAT 98
== END 2024-11-08 01:45 | disposition home or self-care (01) ==
LOC: EDH 23:38
DX: N39.0 Urinary tract infection, site not specified (principal); E11.9 Type 2 diabetes mellitus without complications; E78.00 Pure hypercholesterolemia, unspecified; I10 Essential (primary) hypertension; Z79.818 Long term (current) use of other agents affecting estrogen receptors and estrogen levels; Z79.84 Long term (current) use of oral hypoglycemic drugs; Z79.899 Other long term (current) drug therapy; Z90.710 Acquired absence of both cervix and uterus
CPT/HCPCS: 99284; 87086 ×2; 87186; 81001; 96372; J0696